=== PATIENT | male | born 1980 | race American Indian/Alaskan Native ===

== ENCOUNTER 2017-09-08 19:44 | Emergency (ER) | payer SELFPAY ==
[2017-09-08 21:17] LABS: Basophils # (Auto) 0.1 K/mm3 (0.0-0.1); Basophils % (Auto) 0.9 % (0.0-1.8); Eosinophils # (Auto) 0.3 K/mm3 (0.0-0.4); Eosinophils % (Auto) 4.2 % (0.0-4.3); Hematocrit 45.7 % (35.5-45.6); Hemoglobin 14.7 gm/dl (11.8-15.2); Lymphocytes # (Auto) 2.2 K/mm3 (1.2-5.4); Lymphocytes % (Auto) 32.8 % (13.4-35.0); Mean Corpuscular HGB Conc 32 % (32-34); Mean Corpuscular Hemoglobin 28 pg (28-32); Mean Corpuscular Volume 87 fl (84-94); Monocytes # (Auto) 0.6 K/mm3 (0.0-0.8); Monocytes % (Auto) 8.7 % (0.0-7.3); Platelet Count 222 K/mm3 (140-440); Red Blood Count 5.26 M/mm3 (3.65-5.03); Red Cell Distribution Width 13.7 % (13.2-15.2)
[2017-09-08 21:42] LABS: BUN/Creatinine Ratio 12; Blood Urea Nitrogen 11 mg/dL (9-20); Hemolysis Index 4
[2017-09-08 22:38] LABS: Amphetamine Screen,Urine PRESUMPTIVE NEGATIVE; Benzodiazepines Screen,Urine PRESUMPTIVE NEGATIVE; Cannabinoid Screen,Urine PRESUMPTIVE NEGATIVE; Cocaine Screen,Urine PRESUMPTIVE NEGATIVE; Methadone Screen,Urine PRESUMPTIVE NEGATIVE; Opiate Screen,Urine PRESUMPTIVE NEGATIVE
[2017-09-09] MEDS ORDERED: ATIVAN PO ONE (05:16)
--- NOTE | 2017-09-09 06:07 | Emergency Department Report ---
ED Chest Pain HPI - General Chief Complaint: Chest Pain Stated Complaint: CHEST PAIN Time Seen by Provider: 09/09/17 05:13 Source: patient Mode of arrival: Ambulatory Limitations: No Limitations - History of Present Illness Initial Comments: 37-year-old man with prior history of controlled hypertension, but no past history of myocardial infarction, presents for evaluation of chest pain, which occurred several hours earlier during the previous evening, while he was engaged in an argument with his girlfriend. 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 He felt discomfort in the chest which felt like a tightness and some difficulty breathing, but he had no secondary symptoms of angina or myocardial infarction, with no radiation of discomfort no diaphoresis, and no nausea or vomiting. He did have a sense of irregularity or palpitations of his heart beat during that time, but this is also subsided. He had no cough or congestion, and is a former smoker, and denies recreational use of drugs. He takes blood pressure medications routinely , and reports his blood pressure is normally in the 140/80 range. Patient is mildly anxious at time of my examination, but having no active pain at time of interview in the emergency department. -: Sudden, hour(s) (1-2 hours) Onset: during rest, other (during argument) Pain Location: other (generalized chest tightness) Pain Radiation: none Severity scale (0 -10): 0 Quality: tightness, pressure Consistency: intermittent Improves With: nothing Worsens With: other (distress, argument) Context: recent travel, other (recent stress) re: denies: nausea, diaphoresis, dyspnea Other Symptoms: denies: cough, fever Treatments Prior to Arrival: none - Related Data Home Medications Medication Instructions Recorded Confirmed Last Taken amLODIPine 10 mg PO DAILY 09/08/17 09/08/17 Unknown Previous Rx's Medication Instructions Recorded Last Taken Type LORazepam [Ativan] 0.5 mg PO Q6H PRN #30 tablet 09/09/17 Unknown Rx Allergies Allergy/AdvReac Type Severity Reaction Status Date / Time No Known Allergies Allergy Unverified 09/08/17 20:12 Heart Score - HEART Score History: Slightly suspicious EKG: Normal Age: < 45 Risk factors: 1-2 risk factors Troponin: < normal limit HEART Score: 1 ED Review of Systems ROS: Stated complaint: CHEST PAIN Other details as noted in HPI Constitutional: no symptoms reported Eyes: denies: eye pain, eye discharge, vision change ENT: denies: ear pain, throat pain Respiratory: see HPI Cardiovascular: chest pain, palpitations. denies: dyspnea on exertion, orthopnea, syncope Endocrine: no symptoms reported Gastrointestinal: as per HPI. denies: abdominal pain, nausea, vomiting Genitourinary: denies: urgency, dysuria Musculoskeletal: denies: back pain, joint swelling, arthralgia Skin: denies: rash, lesions Neurological: denies: headache, weakness, paresthesias Psychiatric: other (recent stress, agitation and anxiety) Hematological/Lymphatic: denies: easy bleeding, easy bruising ED Past Medical Hx - Past Medical History Hx Hypertension: Yes (controlled well with amlodipine) Hx CVA: No Hx Heart Attack/AMI: No Additional medical history: A-FIB - Surgical History Past Surgical History?: No - Social History Smoking Status: Former Smoker Substance Use Type: None - Medications Home Medications: Home Medications Medication Instructions Recorded Confirmed Last Taken Type amLODIPine 10 mg PO DAILY 09/08/17 09/08/17 Unknown History LORazepam [Ativan] 0.5 mg PO Q6H PRN #30 tablet 09/09/17 Unknown Rx ED Physical Exam - General Limitations: No Limitations General appearance: in no apparent distress, other (healthy-appearing adult male ) - Head Head exam: Present: atraumatic, normocephalic - Eye Eye exam: Present: normal appearance, PERRL - ENT ENT exam: Present: normal exam - Neck Neck exam: Present: normal inspection. Absent: tenderness - Respiratory Respiratory exam: Present: normal lung sounds bilaterally. Absent: respiratory distress, wheezes, rales - Cardiovascular Cardiovascular Exam: Present: regular rate - Rectal Rectal exam: Present: deferred - Extremities Exam Extremities exam: Present: normal inspection. Absent: pedal edema - Neurological Exam Neurological exam: Present: alert, oriented X3, CN II-XII intact. Absent: motor sensory deficit - Psychiatric Psychiatric exam: Present: normal affect, normal mood, anxious - Skin Skin exam: Present: warm (mildly), dry ED Course Vital Signs 09/08/17 09/09/17 09/09/17 20:03 04:04 04:30 Temperature 98 F 97.7 F Pulse Rate 89 72 Respiratory 16 20 20 Rate Blood Pressure 163/115 Blood Pressure 153/104 [Right] O2 Sat by Pulse 99 100 100 Oximetry 09/09/17 09/09/17 05:24 05:27 Temperature Pulse Rate 70 Respiratory 20 20 Rate Blood Pressure Blood Pressure 146/104 [Right] O2 Sat by Pulse 100 99 Oximetry - Reevaluation(s) Reevaluation #1: 09/09/17 06:10 Patient initially hypertensive on arrival, blood pressure recheck was 146/104, and patient was given lorazepam orally on the basis of recent stress. ED Medical Decision Making - Lab Data Result diagrams: 09/08/17 21:10 09/08/17 21:10 - EKG Data -: EKG Interpreted by Me EKG shows normal: sinus rhythm (with frequent premature atrial contraction, incorrectly read as atrial fibrillation on computerized reading) Rate: normal - EKG Data When compared to previous EKG there are: previous EKG unavailable 09/09/17 06:14 Repeat EKG taken at 0514 hrs., after patient had been resting in the emergency department for several hours shows resolution of premature atrial contractions, with a normal sinus rhythm at 65 bpm, and no acute ST-T wave changes. This is normal EKG, with QRS axis of 0, QT interval of 380 ms corrected. - Medical Decision Making Patient has clearly had a stress related event, with musculoskeletal chest tightness, but history is not significantly worrisome for acute myocardial event , although he has had secondary blood pressure elevation, this is also likely stress-related as well. Serial troponin levels are repeatedly negative, BNP undetectable. Patient was given Ativan for stress, was found to be relaxing and sleeping comfortably on stretcher on recheck, and repeat blood pressure was normal at 128/67, patient feeling much better, and felt stable enough for discharge. We will give him a short course of lorazepam for anxiolytic and sleep purposes. - Differential Diagnosis acute stress reaction, acute coronary syndrome, myocardial infarction Critical Care Time: No Critical care attestation.: If time is entered above; I have spent that time in minutes in the direct care of this critically ill patient, excluding procedure time. ED Disposition Disposition: DC-01 TO HOME OR SELFCARE Is pt being admited?: No Does the pt Need Aspirin: No Condition: Good Instructions: Stress (ED), Noncardiac Chest Pain (ED) Prescriptions: LORazepam [Ativan] 0.5 mg PO Q6H PRN #30 tablet PRN Reason: Anxiety Referrals: DAVID KINGSTON MD [Primary Care Provider] - 3-5 Days Time of Disposition: 06:18
[2017-09-09 06:39] VITALS: BP 128/78
== END 2017-09-09 06:40 | disposition home or self-care (01) ==
LOC: ED 19:44
DX: R07.9 Chest pain, unspecified (principal); I10 Essential (primary) hypertension; Z87.891 Personal history of nicotine dependence
CPT/HCPCS: 36415; 80048; 80307; 84484; 85025; 93005; 93010; 99284